=== PATIENT | female | born 1960 | race Caucasian/White ===

== ENCOUNTER 2021-11-21 13:50 | Observation (INO) | payer OTHER ==
--- NOTE | 2021-11-20 16:46 | HP ---
HISTORY AND PHYSICAL CHIEF COMPLAINT: Left ankle pain. HISTORY OF PRESENT ILLNESS: The patient is a 61-year-old female who presents with left ankle pain after an injury on 10/29/2021. She slipped and fell on the ice at her son's house. She initially was seen at [facility] and was placed in a splint. She followed up with an orthopedic surgeon who three times brought her in for surgery; however, the surgeon did not perform the procedure. During her last visit she did test positive for COVID and was sent home. She had been asymptomatic and continues to be asymptomatic. She also notes she has had two vaccination shots along with her booster. She denies previous injury involving her ankle. She has been on crutches. PAST MEDICAL HISTORY: Significant for COPD. PAST SURGICAL HISTORY: Significant for hernia repair. CURRENT MEDICATIONS: None. ALLERGIES: MORPHINE. FAMILY HISTORY: Significant for cancer. SOCIAL HISTORY: Negative for current tobacco or alcohol use. However, she has previous tobacco use history. REVIEW OF SYSTEMS: Sixteen-point review of systems otherwise reviewed and is noncontributory. PHYSICAL EXAMINATION: On examination, the patient is approximately 5 feet 4 inches, 140 pounds of mesomorphic habitus. HEENT exam is nonfocal. Neck is supple. She has painless passive motion of her left hip. She is nontender about the left knee and proximal fibula. On examination of her left ankle, she has moderate medial and lateral swelling. She is tender over the distal fibula and the medial malleolus. She has healed medial and lateral blisters. No mid or forefoot tenderness is noted. Her distal neurovascular exam appears intact in the left lower extremity. X-rays of the left ankle obtained in the office show a comminuted bimalleolar ankle fracture with 3 to 4 mm displacement. IMPRESSION: 1. Left bimalleolar ankle fracture, displaced, subacute. 2. History of chronic obstructive pulmonary disease. 3. History of a positive COVID test. RECOMMENDATIONS: I talked to the patient at length regarding her condition along with treatment options. At this point I recommended proceeding with surgical intervention. She understands she is at high risk for complications, as this is a subacute injury. We will plan to proceed with open reduction and internal fixation of her left bilateral ankle fracture. Potentially we will keep the patient for a 23-hour hold postoperatively. Risks and benefits were discussed at length in layman's terms. MMODL / IJN: [id number] /
[2021-11-21] MEDS ORDERED: LACTATED RINGERS 1,000 ML IV ONE ×3 (15:29→17:10)
[2021-11-21] MEDS ORDERED: ONDANSETRON 4 MG/2 ML VIAL ONE (16:11)
[2021-11-21] MEDS ORDERED: MIDAZOLAM 2 MG/2 ML VIAL IVP ONE (16:16)
[2021-11-21] MEDS ORDERED: fentaNYL (PF) 50 MCG/ML 2 ML AMP IVP ONE (16:18)
[2021-11-21] MEDS ORDERED: LIDOCAINE 1% INJ 10MG/ML (20 ML MDV) ONE (16:30)
[2021-11-21] MEDS ORDERED: MIDAZOLAM 2 MG/2 ML VIAL ONE (16:30)
[2021-11-21] MEDS ORDERED: SODIUM CHLORIDE 0.9% (PF) 10 ML VIAL ONE (16:30)
[2021-11-21] MEDS ORDERED: PROPOFOL 10 MG/ML 20 ML VIAL IV ONE (16:30)
[2021-11-21] MEDS ORDERED: ROPIVACAINE 5 MG/ML 30 ML VIAL ONE (16:30)
--- NOTE | 2021-11-21 16:30 | P.ANPRN ---
Procedure Note - Anesthesia - Nerve Block Performed Left Adductor Canal Single Time Out Performed: Yes (1616) Date of Procedure: 11/21/21 Procedure Start Time: 16:16 Procedure Stop Time: 16:26 Location of Patient: PreOp Indication: Acute Post-Operative Pain, Requested by Surgeon Sedation Type: Sedate with meaningful contact maintained Preparation: Sterile Prep Position: Supine Catheter: None Needle Types: Pajunk Needle Gauge: 20 Ultrasound used to visualize needle placement: Yes Ultrasound used to observe medication spread: Yes Injectate: 0.5% Ropivacaine (see comment for volume) (20 mL of block solution containing -10 mL of 0.5% ropivacaine mixed with 10 ML of preservative-free normal saline)
[2021-11-21] MEDS ORDERED: DEXAMETHASONE SOD PHOSPHATE 4 MG/ML 1 ML VIAL IVP ONE (16:31)
--- NOTE | 2021-11-21 16:31 | P.ANPRN ---
Procedure Note - Anesthesia - Nerve Block Performed Left Popliteal Single Time Out Performed: Yes (1616) Date of Procedure: 11/21/21 Procedure Start Time: 16:16 Procedure Stop Time: 16: Location of Patient: PreOp Indication: Acute Post-Operative Pain, Requested by Surgeon Sedation Type: Sedate with meaningful contact maintained Preparation: Sterile Prep Position: Right Lateral Catheter: None Needle Types: Pajunk Needle Gauge: 20 Ultrasound used to visualize needle placement: Yes Ultrasound used to observe medication spread: Yes Injectate: 0.5% Ropivacaine (see comment for volume) Blood Aspirated: No Pain Paresthesia on Injection Noted: No Resistance on Injection: Normal Image Stored and Saved: Yes Events: Uneventful and Well Tolerated (20 mL of block solution containing -10 mL of 0.5% ropivacaine mixed with 10 ML of preservative-free normal saline)
[2021-11-21] MEDS ORDERED: ceFAZolin 1,000 MG in SODIUM CHLORIDE 0.9% 1,000 ML IRRIGATION ONE ×4 (17:11)
--- NOTE | 2021-11-21 18:31 | FL ---
EXAMINATION TYPE: FL guidance operating room DATE OF EXAM: 11/21/2021 6:22 PM INDICATION: Patient age:Female; 61 years old; Reason for study: LT ANKLE FX ORIF; PHH. Intraoperative fluoroscopic services were provided for internal fixation of a left tibia and fibula. Total fluoroscopy time is 34 seconds with a total of 4 submitted images to PACS. Please see the opera tive note for further details.
[2021-11-21] MEDS ORDERED: HYDROmorphone 0.5 MG/0.5 ML SYRINGE IVP PRN (18:38)
[2021-11-21] MEDS ORDERED: SENNOSIDES-DOCUSATE SODIUM 1 EACH TAB PO PRN (18:38)
--- NOTE | 2021-11-21 18:45 | P.OP ---
Date of Procedure: 11/21/21 Preoperative Diagnosis: Displaced left bimalleolar ankle fracturesubacute Postoperative Diagnosis: Same Procedure(s) Performed: Open reduction and internal fixation left bimalleolar ankle fracture with application of bone graft substitute in the medial malleolus Implants: Arthrex 7 hole one third tubular plate, 4.0 x 44 mm cancellus screws 2 Anesthesia: regional, spinal Surgeon: Gume Lema Captain/Airline Pilot #1: Juancarlos Cisneros Estimated Blood Loss (ml): 10 Pathology: none sent Condition: stable Disposition: PACU Indications for Procedure: The patient's a 61-year-old female who presented after injuring her left ankle 3 weeks ago with a displaced left bimalleolar ankle fracture. A discussion of the risks and benefits of operative intervention was made with patient. She opted to proceed with surgery. Operative risks to include infection, neurovascular injury, development of nonunion/malunion, possible need for subsequent procedures was discussed. She understood she has a complicated injury and with its subacute nature, her overall result/outcome may be compromised. Informed consent was obtained. Operative Findings: As below Description of Procedure: The patient was brought to the operating room, and after induction of spinal anesthesia the left lower extremity was prepped and draped in a normal fashion. The tourniquet was inflated to 270 mmHg. An 8 cm incision was then made along the posterior lateral border of the left distal fibula. Skin was incised sharply. Subcutaneous tissues were divided bluntly. The fracture site was identified. Significant healing was occurring. The fibrous tissue was debrided exposing the fracture site. This was then provisionally reduced with a reduction clamp. A 7-hole one third tubular plate was pre-bent and applied as a lateral neutralization plate. 3.5 mm cortical screws were placed proximally and 4.0 mm cancellous screws distally of the appropriate length. This is done with the aid of fluoroscopy. I felt I was able to restore fibular length and overall alignment. Attention was then paid towards the medial malleolus. A 4 cm incision was made medially. Skin was incised sharply. Subcu tissues were di vided bluntly. The fracture site was identified. Again substantial healing had begun. The fibrous tissue was debrided at the fracture site. This was then provisionally reduced and held in place with 2 guidewires. This done with the aid of fluoroscopy. A cannulated drill was then used over these guidewires. 4.0 x 44 mm partially threaded cancellous screws were then inserted over the guidewires. Good purchase was obtained. A posterior medial defect of the medial malleolus measured approximately 4 x 5 mm. I did impact demineralized bone matrix with cancellous bone chips. Final fluoroscopic views to include AP, mortise and, and lateral views showed adequate alevism of the ankle mortise and placement of the implants. The wounds were irrigated normal saline. The subcuticular tissues reapproximated interrupted 2-0 Vicryl sutures. Skin was reapproximated with interrupted 3-0 nylon sutures. A sterile dressing was applied in addition to a bulky splint. The tourniquet was deflated with approximately 70 minutes total tourniquet time. The patient was awoken from sedation and transferred to recovery room in good condition. Blood loss was estimated 10 mL. No complications were incurred. Sponge and needle counts were correct in the case. Juancarlos DIAS assisted during the major components the case to include positioning, exposure, implantation, and closure.
[2021-11-21] MEDS: LACTATED RINGERS 1,000 ML IV SCH (23:59)
[2021-11-22] MEDS: HYDROcodone/APAP 5-325MG 1 EACH TAB PO PRN ×2 (02:20→08:39)
[2021-11-22 06:39] LABS: Basophils % (A) 0 %; Eosinophils % (A) 0 %; HCT 35.5 % (34.0-46.0); HGB 11.8 gm/dL (11.4-16.0); Lymphocytes # (A) 2.4 k/uL (1.0-4.8); Lymphocytes % (A) 28 %; MCH 37.7 pg (25.0-35.0); MCHC 33.4 g/dL (31.0-37.0); MCV 112.7 fL (80.0-100.0); Macrocytosis Marked; Mean Platelet Volume 8.4; Monocytes # (A) 0.5 k/uL (0-1.0); Monocytes % (A) 5 %; Neutrophils # (A) 5.5 k/uL (1.3-7.7); Neutrophils % (A) 64 %; Platelet Count 291 k/uL (150-450); RBC 3.15 m/uL (3.80-5.40); RDW 13.9 % (11.5-15.5); WBC 8.7 k/uL (3.8-10.6)
[2021-11-22] MEDS ORDERED: HYDROmorphone 0.5 MG/0.5 ML SYRINGE IVP PRN (07:00)
[2021-11-22 07:42] VITALS: BP 95/58; PULSE 78; RESP 17; TEMP 98.1
[2021-11-22] MEDS ORDERED: ASPIRIN 325 MG TAB PO SCH (09:00)
--- NOTE | 2021-11-22 09:04 | P.DS ---
Providers Date of admission: 11/22/21 08:19 Expected date of discharge: 11/22/21 Attending physician: Gume Lema Primary care physician: Stated None Hospital Course: Date of admission: 11/21/2021 Date of discharge: 11/22/2021 Admission diagnosis: Displaced left bimalleolar ankle fracturesubacute Discharge diagnosis: Same Attending physician: Dr. Lema Surgical procedures: Open reduction and internal fixation left bimalleolar ankle fracture with application of bone graft substitute in the medial malleolus Brief history: Patient is a 61-year-old female with a history of displaced left bimalleolar ankle fracture. At this point patient has failed conservative treatment measures and has opted to proceed with a elective ORIF left bimalleolar ankle fracture with application of bone graft substitute in medial malleolus. Hospital course: Details of patient's surgery can be found in operative report. Patient tolerated the procedure well and was subsequently transported to orthopedic floor. Patient's orthopeidc and medical care was provided daily. Patient had daily laboratory tests performed for evaluation of overall blood counts. Patient had daily physical therapy to include strengthening range of motion as well as education with walker ambulation. Patient was treated with aspirin for their postoperative DVT prophylaxis during their inpatient stay. Patient was noted to have a relatively uneventful postoperative course. Patient reported satisfactory pain control with oral pain medications by postoperative day 1. Patient showed satisfactory progress with physical therapy. Patient moved steadily through the program and had no difficulty meeting the goals by postoperative day 1. Given patient's otherwise satisfactory course and having met physical therapy goals, plan is to discharge patient home on postoperative day 1. Discharge condition/disposition: Patient will be discharged home in stable condition. Discharge medications: Instructions are given on resumption of patient's normal daily medications per primary care recommendation, in addition patient will be prescribed [place] 7.5 mg/325 mg; aspirin 325 mg daily x 30 days; patient has stool softener at home. Discharge instructions: 1. Wound care and infection precautions, keep incision dry and covered while showering, no lotions, creams, moisturizers. No soaking, tubs, pools, hottubs. Do not scrub over the incision. 2. Non-weight bearing left lower extremity. Use crutches until follow up in 2 weeks 3. Ice and elevate when necessary. Do not exceed 20 minutes per hour with ice pack. 4. Pain meds and anticoagulants per prescription. 5. Pain medication has potential to cause constipation. Increase oral fluid and fiber intake. Contact primary care provider if you have not had a bowel movement within 48 hours after discharge 6. No anti-inflammatory medication until discussed at first post operative visit, this including Motrin, Aleve, Mobic, Diclofenac. 7. Follow up in office at 2 weeks postop with Robin De La Garza PA-C / Juancarlos Cisneros PA-C 8. Follow up with your primary care doctor 7-10 days after discharge. 9. Contact [facility] with any questions, . Keep splint on. Keep splint clean, dry, intact. Medications: [place] 7.5 mg/325 mg; aspirin 325 mg daily 30 days Assessment: Displaced left bimalleolar ankle fracturesubacute Procedures: Open reduction and internal fixation left bimalleolar ankle fracture with application of bone graft substitute in the medial malleolus Patient Condition at Discharge: Good Plan - Discharge Summary Discharge Rx Participant: No New Discharge Prescriptions: New Aspirin 325 mg PO DAILY #30 tab HYDROcodone/APAP 7.5-325MG [[place] 7.5] 1 each PO Q6HR PRN #28 tab PRN Reason: Pain No Action Acetaminophen Tab [Tylenol Tab] 1,000 mg PO Q6HR Propranolol [Inderal] 10 mg PO BID Omeprazole [PriLOSEC] 1 tab PO DAILY Butalb/Acetaminophen/Caffeine [Fioricet 50-325-40] 1 each PO Q4H 5 Days tab Albuterol Sulfate [Proair Hfa] PRN PRN Reason: Shortness Of Breath HYDROcodone/APAP 5-325MG [[facility] 5-325] 1 tab PO Q6HR PRN PRN Reason: Pain Discharge Medication List Acetaminophen Tab [Tylenol Tab] 1,000 mg PO Q6HR 01/12/15 [History] Propranolol [Inderal] 10 mg PO BID 01/12/15 [History] Butalb/Acetaminophen/Caffeine [Fioricet 50-325-40] 1 each PO Q4H 5 Days tab 01/14/15 [Rx] Omeprazole [PriLOSEC] 1 tab PO DAILY 01/14/15 [History] Albuterol Sulfate [Proair Hfa] PRN 11/21/21 [History] HYDROcodone/APAP 5-325MG [[facility] 5-325] 1 tab PO Q6HR PRN 11/21/21 [History] Aspirin 325 mg PO DAILY #30 tab 11/22/21 [Rx] HYDROcodone/APAP 7.5-325MG [[place] [facility] 7.5] 1 each PO Q6HR PRN #28 tab 11/22/21 [Rx] Follow up Appointment(s)/Referral(s): Juancarlos Cisneros, PRIYA [PHYSICIAN SAUSAGE INSPECTOR] - 12/07/21 8:40 am None,Stated [Primary Care Provider] - 1 Week Patient Instructions/Handouts: Ankle Fracture (DC) Activity/Diet/Wound Care/Special Instructions: Discharge instructions: 1. Wound care and infection precautions, keep incision dry and covered while showering, no lotions, creams, moisturizers. No soaking, tubs, pools, hottubs. Do not scrub over the incision. 2. Non-weight bearing left lower extremity. Use crutches until follow up in 2 weeks 3. Ice and elevate when necessary. Do not exceed 20 minutes per hour with ice pack. 4. Pain meds and anticoagulants per prescription. 5. Pain medication has potential to cause constipation. Increase oral fluid and fiber intake. Contact primary care provider if you have not had a bowel movement within 48 hours after discharge 6. No anti-inflammatory medication until discussed at first post operative visit, this including Motrin, Aleve, Mobic, Diclofenac. 7. Follow up in office at 2 weeks postop with Robin De La Garza PA-C / Juancarlos Cisneros PA-C 8. Follow up with your primary care doctor 7-10 days after discharge. 9. Contact [facility] with any questions, . Keep splint on. Keep splint clean, dry, intact. Medications: [place] 7.5 mg/325 mg; aspirin 325 mg daily 30 days Discharge Disposition: HOME SELF-CARE
--- NOTE | 2021-11-22 09:25 | P.PN ---
Subjective Progress Note Date: 11/22/21 Principal diagnosis: Displaced left bimalleolar ankle fracturesubacute Patient was seen at bedside this morning resting comfortably with splint on left lower extremity. Patient says most of her pain is located on the inside portion of her ankle as she points to the medial malleolus. Patient says she is ready to go home today. Patient says she does have crutches at home. Patient says she does have spouse at home to help her out. Patient says she has had a bowel movement since surgery. Patient denies chest pain, fever, shortness of breath, nausea, vomiting, change in vision, loss of bowel/bladder control. Objective - Vital Signs Vital signs: Vital Signs Temp 98.1 F 11/22/21 06:55 Pulse 78 11/22/21 06:55 Resp 17 11/22/21 06:55 BP 95/58 11/22/21 06:55 Pulse Ox 95 11/22/21 06:55 Intake & Output 11/21/21 11/22/21 11/22/21 18:59 06:59 18:59 Intake Total 1401 Output Total 10 Balance 1391 Weight 63.503 kg 63.503 kg Intake: IV 1401 Output: Estimated Blood Loss 10 Other: Voiding Method Toilet Bedside Commode # Voids 3 - Exam Left ankle: Splint is present on the left lower leg. Patient is able to wiggle digits in left lower extremity. Cap refill is under 3 seconds in digits of left lower extremity. Patient has good range of motion in left hip/knee able to flex and extend close to full at the left knee. Radial pulses intact, 2+ bilaterally. Sensory exam to light touch throughout the extremity is intact. - Labs CBC & Chem 7: 11/22/21 05:27 Labs: Abnormal Lab Results - Last 24 Hours (Table) 11/22/21 Range/Units 05:27 RBC 3.15 L (3.80-5.40) m/uL MCV 112.7 H (80.0-100.0) fL MCH 37.7 H (25.0-35.0) pg Macrocytosis Marked A Assessment and Plan Assessment: Displaced left bimalleolar ankle fracturesubacute Postoperative day 1 status post Open reduction and internal fixation left bimalleolar ankle fracture with application of bone graft substitute in the medial malleolus Plan: 1. Displaced left bimalleolar ankle fracturesubacute - surgery performed yesterday, 11/21/2021 - Open reduction and internal fixation left bimalleolar ankle fracture with application of bone graft substitute in the medial malleolus. Patient stable at bedside this morning. Plan discharge home today. 2. Appreciate medical management 3. Pain management - going home with [place] 7.5 mg/325 mg 4. DVT prophylaxis - aspirin 325 mg daily 30 days 5. GI prophylaxis - Senna 6. PT/OT - nonweightbearing left lower extremity. Weightbearing as tolerated other extremities. 7. Discharge planning - discharge home today Time with Patient: Less than 30
[2021-11-22] MEDS: LACTATED RINGERS 1,000 ML IV SCH (10:20)
== END 2021-11-22 13:50 | disposition home or self-care (01) ==
LOC: OR 13:50 → 4SSUR 18:29 → OR 11-22 08:07 → 4SSUR 11-22 08:19
PROVIDERS: ADMIT Orthopaedic Surgery; ATTEND Orthopaedic Surgery
DX: S82.842A Displaced bimalleolar fracture of left lower leg, initial encounter for closed fracture (principal); J44.9 Chronic obstructive pulmonary disease, unspecified; G43.909 Migraine, unspecified, not intractable, without status migrainosus; K21.9 Gastro-esophageal reflux disease without esophagitis; Z86.16 Personal history of COVID-19; Z87.891 Personal history of nicotine dependence; W00.0XXA Fall on same level due to ice and snow, initial encounter; Z88.5 Allergy status to narcotic agent; Z79.899 Other long term (current) drug therapy; Z90.710 Acquired absence of both cervix and uterus; Z80.9 Family history of malignant neoplasm, unspecified
CPT/HCPCS: 27814; 27899; 64447; 64445; 76942; 85025; 73610; G0378; C1713; J2250; J1100; J0690 ×2; J2405; J2001; J3010; J2795; J2704; J1170